=== PATIENT | male | born 1995 | race African-American/Black ===

== ENCOUNTER 2023-09-16 14:40 | Outpatient (REF) | payer MEDICAID, SELFPAY ==
[2023-09-16 15:55] LABS: MANUAL DIFF FLAG NO
[2023-09-16 16:52] LABS: Basophils Percent Auto 0.5 % (0-2); Eosinophils Absolute Auto 0.1 X10*3/uL (0.0-0.4); Eosinophils Percent Auto 1.2 % (0-4); Hematocrit 44.3 % (42.0-52.0); Hemoglobin 14.3 g/dl (14.0-18.0); Imm Gran Abs Auto 0.01 X10*3/uL (0.00-0.03); Imm Gran Pct Auto 0.2 % (0.0-0.4); Lymphocytes Percent Auto 31.3 % (20-40); Mean Corpuscular HGB Conc 32.3 g/dl (31.0-36.0); Mean Corpuscular Hemoglobin 26.2 pg (27.0-33.0); Mean Corpuscular Volume 81.1 fL (80.0-98.0); Monocytes Absolute Auto 0.7 X10*3/uL (0.1-1.2); Monocytes Percent Auto 10.6 % (2-11); Neutrophils Absolute Auto 3.6 x10*3/uL (2.0-8.3); Neutrophils Percent Auto 56.2 % (45-73); Platelet Count 161 X10*3/uL (160-400); Red Blood Count 5.46 X10*6/uL (4.60-5.80); Red Cell Distribution Width 14.6 % (11.0-16.0); White Blood Count 6.5 X10*3/uL (4.8-10.8)
[2023-09-16 17:23] LABS: Alanine Aminotransferase 24 U/L (0-40); Albumin Level 4.3 g/dL (3.5-5.0); Alkaline Phosphatase 60 U/L (39-117); Anion Gap 14 (12-20); Aspartate Amino Transferase 26 U/L (5-37); Bilirubin Total 1.3 mg/dL (0.0-1.0); Blood Urea Nitrogen 13 mg/dL (9-16); Calcium 9.7 mg/dL (8.4-10.2); Carbon Dioxide 24 mmol/L (22-29); Chloride 106 mmol/L (96-108); Estimated Glomerular Filt Rate > 60; Glucose Random 85 mg/dL (60-115); Potassium 3.8 mmol/L (3.3-5.1); Sodium 140 mmol/L (135-145); Total Protein 7.4 g/dL (6.5-8.0)
== END 2023-09-16 14:41 | disposition home or self-care (01) ==
LOC: HO.LAB 14:40
PROVIDERS: PCP Physician Assistant Medical; Visit Provider Nurse Practitioner
DX: Z01.818 Encounter for other preprocedural examination (principal); K92.1 Melena
CPT/HCPCS: 36415; 80053; 85025; 99212

== ENCOUNTER 2023-09-16 14:40 | Outpatient (AMB) | payer MEDICAID, SELFPAY ==
--- NOTE | 2023-09-16 14:52 | A.OFFVIS_ITS ---
Vital Signs 09/16/23 14:59 Height 5 ft 8 in Weight 200 lb 9.93 oz BMI 30.5 BP 108/68 Blood Pressure Location Lt brachial Position Sitting Pulse 68 Pulse Source Pulse Oximeter Pulse Oximetry (%) 98 Oxygen Delivery Method Room Air Intake Visit Reasons: Melena Intake Note: Paulie presents in office today for an initial assessment. CC; Pt reports that he had began with sx within the last 4-6 months. Pt reports that it had started with what he thought was food poisoning as he was experiencing nausea and vomiting. Pt reports that this had resolved on its own up until June of 2023. Pt then reports experiencing melena and frequent headaches. Pt states that he is seeing small amounts of bright red blood in the stool itself. [employer] Required: No Accompanied by: Mother Allergies No Known Drug Allergies Allergy (Unknown, Verified 09/16/23 14:53) none HPI HPI Melena: Details: 28-year-old male here for initial evaluation of rectal bleeding. He is referred by [facility] in [place]. PMX Obesity SURGICAL HISTORY Patient and mother denies [employer]: None in our system On 09/10/23 @ 08:51 Phyllis Morel Wrote To Morel I just called the patient and he is not taking any medications and has never had any surgery done. On 09/09/23 @ 17:28 AdrielWhit Wrote To Morel (2) This patient is on my schedule for next week for rectal bleeding. The referral sent does not have any medical surgery history or medications. We need to get information in the chart or reschedule the patient to a later date when we can have the information. TODAY'S VISIT ONset for a few days in June with blood clinging to the stool. He has not speci fic bowel problems and no abd pain associated with this episode. No rectal pain. No upper stomach problems. He is naive to anesthesia and sedation. He denies any cardiac or respiratory problems. NO ID problems. His mother has had a resection for TICS no known crc or polyps. [facility] Family History Maternal Grandmother Bone cancer Social History Alcohol intake: never Patient Tobacco Use Status: Never used Tobacco Use of substances other than those prescribed or required for medical reasons: No Review of Systems Const Denies fatigue, Denies fever(s), Denies night sweats, Denies poor appetite and Denies weight loss ENT Reports Normal hearing present, Denies dental pain, Denies dysphagia, Denies hearing loss, Denies mouth pain, Denies odynophagia, Denies throat swelling, Denies tongue swelling and Reports other (Dentition adequate) Card Reports no additional complaints Resp Reports no additional complaints GI Details: Denies abdominal pain, Denies melena, Denies bloating, Reports hematochezia, Denies constipation, Denies GI cramping, Denies dysphagia, Denies excessive flatus, Denies early satiety, Denies heartburn, Denies diarrhea, Denies nausea, Denies odynophagia, Denies vomiting and Denies hematemesis Skin/Breast Denies pruritus, Denies lesions, Denies rash and Denies jaundice Neuro Reports Normal hearing present and Denies Abnormal speech present Endo Denies fatigue Aller/Immun Denies throat swelling and Denies tongue swelling Physical Exam Vital Signs: Last Vital Signs Pulse 68 09/16/23 14:59 BP 108/68 09/16/23 14:59 Pulse Ox 98 09/16/23 14:59 Oxygen Delivery Method Room Air 09/16/23 14:59 BMI result Body Mass Index 30.5 Const General: cooperative, no acute distress, well developed and well groomed Nutritional Appearance: well nourished and obese Orientation/consciousness: oriented to person, oriented to place and oriented to time Limitations: No language barrier HEENT Head: Yes normocephalic and Yes atraumatic Eyes General: appearance normal, both eyes and all related structures Pupils: Equal, round and reactive pupils present Neck Neck: Yes normal visual inspection and Yes no lymphadenopathy Thyroid: Thyroid normal Resp Effort & Inspection: normal respiratory effort and able to speak in complete sentences Auscultation: clear to auscultation bilaterally Cardio Rate: regular rate Rhythm: regular rhythm Heart sounds: Normal, physiologic split S2 sound present Peripheral pulses: radial pulses present and posterior tibial pulses present GI Inspection: No distended, No Abdominal panniculus present and Yes obesity Palpation (GI): Soft to palpation, nontender, no guarding, not rigid and No hepatosplenomegaly present Percussion: Yes normal to percussion Auscultation: normal bowel sounds Rectal Exam - Male: Yes deferred Skin General skin exam: no rashes or lesions noted, turgor normal, skin not dry, no jaundice, No spider nevi and no striae Rashes: no rashes Nails: normal Neuro General: oriented to person, oriented to place and oriented to time Cranial nerves: Yes Equal, round and reactive pupils present and Yes Normal hearing present Speech: No Abnormal speech present Extrem General: Yes normal to inspection, No clubbing, No cyanosis and No edema Psych Appearance: grossly normal and well kempt Mental Status: mental status grossly normal Speech and movement: Normal speech and movement present Affect: normal affect Attitude: cooperative Thought process: Normal thought process present and not confabulating Thought content: Normal thought content present Insight: Limited insight present (Psych) Judgement: Limited judgement present (Psych) Assessment & Plan Assessment & Plan (1) Pre-op examination: Code(s): Z01.818 - Encounter for other preprocedural examination Category: Medical Plan ONset for a few days in June with blood clinging to the stool. He has not specific bowel problems and no abd pain associated with this episode. No rectal pain. No upper stomach problems. He is naive to anesthesia and sedation. He denies any cardiac or respiratory problems. NO ID problems. His mother has had a resection for TICS no known crc or polyps. Orders: Orders Colonoscopy - GI Use Only Today Z01.818 - Encounter for other preprocedural examination Complete Blood Count Auto Diff Today Z01.818 - Encounter for other preprocedural examination Comprehensive Met. Panel Today Z01.818 - Encounter for other preprocedural examination Medications: New peg 3350-electrolytes 236-22.74-6.74 -5.86 gram (Golytely) until fecal effluent is clear; do not exceed a total volume of 2,000 mL 240 mL PO Q10M 4,000 mL 0RF 1 day Z12.11 - Encounter for screening for malignant neoplasm of colon bisacodyl (Dulcolax (bisacodyl)) 10 mg (2 x 5 mg) PO BEDTIME 4 tabs 0RF 2 days Coding Level of Care Code New Pt Level 3 (04677) Diagnoses Pre-op examination Z01.818
[2023-09-16 14:59] VITALS: BP 108/68; PULSE 68; O2SAT 98; BMI 30.5
== END 2023-09-16 15:29 | disposition home or self-care (01) ==
PROVIDERS: PCP Physician Assistant Medical; Visit Provider Nurse Practitioner
DX: Z01.818 Encounter for other preprocedural examination (principal)
CPT/HCPCS: 99203

== ENCOUNTER 2024-04-20 08:12 | Day surgery (SDC) | payer MEDICAID, SELFPAY ==
[2024-03-01 14:13] VITALS: BMI 30.4
--- NOTE | 2024-04-19 13:26 | P.CONAN_ITS ---
Documented by User: Humera Church NP 04/19/24 13:26 HPI - Anesthesia Eval Consult details Narrative: 28yo M for Colonoscopy [facility] Active Problems Active Problems: All Active Problems Pre-op examination (Acute) Past Medical History Medical History (Updated 04/20/24 @ 09:35 by Oxana Cortes RN) Rectal bleeding Constipation Obesity Family History Family History Maternal Grandmother Bone cancer Surgical History Surgical History (Updated 04/20/24 @ 09:35 by Oxana Cortes RN) No pertinent past surgical history Social History Social History Are you a primary patient care associate to a significant other at home: No Do you presently have visiting nurse or other home services: No Alcohol intake: never Patient Tobacco Use Status: Never used Tobacco Have you been hit, kicked, punched, or otherwise hurt by someone within the past year? If so, by whom?: No Are you DNR?: No Advance Directives: No Advance Directives Information Provided: Yes Recently lost weight without trying: No Nutrition Risks: No Nutritional Risk Meds Allergies Allergy/AdvReac Type Severity Reaction Status Date / Time No Known Drug Allergies Allergy Unknown none Verified 04/20/24 09:34 Home Medications ?Medication ?Instructions ?Recorded ?Confirmed ?Last Taken ?Type No Known Home Meds 04/20/24 04/20/24 Unknown History Exam Height,Weight and Vital Signs: Height 5 ft 8 in Weight 90.718 kg Assessment and Plan Assessment Anesthesia Assessment: Chart Reviewed Documented by User: Emiliano Devries MD 04/20/24 10:27 [facility] Past Medical History Medical History (Updated 04/20/24 @ 09:35 by Oxana Cortes RN) Rectal bleeding Constipation Obesity Family History Family History Maternal Grandmother Bone cancer Family history of problems with anesthesia: No Surgical History Surgical History (Updated 04/20/24 @ 09:35 by Oxana Cortes RN) No pertinent past surgical history History of Problems with Anesthesia: No Social History Social History (Reviewed 09/16/23 @ 14:58 by Davide Gomes [facility]) Are you a primary patient care associate to a significant other at home: No Do you presently have visiting nurse or other home services: No Alcohol intake: never Patient Tobacco Use Status: Never used Tobacco Have you been hit, kicked, punched, or otherwise hurt by someone within the past year? If so, by whom?: No Are you DNR?: No Advance Directives: No Advance Directives Information Provided: Yes Recently lost weight without trying: No Nutrition Risks: No Nutritional Risk Meds Allergies Allergy/AdvReac Type Severity Reaction Status Date / Time No Known Drug Allergies Allergy Unknown none Verified 04/20/24 09:34 Home Medications ?Medication ?Instructions ?Recorded ?Confirmed ?Last Taken ?Type No Known Home Meds 04/20/24 04/20/24 Unknown History Exam Airway Mallampati Class: I TM Dist: >3cm Neck ROM: Full Loose/Missing/Broken Teeth: No Heart: ok Lungs: ok Assessment and Plan Assessment Anesthesia Assessment: Anesthesia Plan Discussed Final Anesthetic Review Family History of Problems with Anesthesia: No History of Problems with Anesthesia: No NPO: Yes ASA Class: II Final Preanesthetic Review: No Changes in Pt Med Stat, Meds/Allgs Chart Reviewed, Consent Obtained/Reviewed and Anes Risks/Benef Reviewed Patient Risk: Intermediate Procedure Risk: Low Anesthetic Plan Anesthetic Plan: MAC: and Agree w/ Assess. and Plan Disposition: Standard PACU
--- OUTSIDE RECORDS SUMMARY | 2024-04-19 14:48 | XMS_ITS | Data Portability ---
Author Organization [facility], Main Office Address [address] [place] [address] Care Team Providers Care Animal Assistant Name Role Phone JORGE LUIS LANE Primary Care Provider [phone] [facility] Branch Manager Assessment No assessment recorded. Plan of Treatment Reminders Order Date Submit Date Provider Last Modified By Organization Details Last Modified Time Details Appointments None recorde d. Lab CBC 2023 024 LIZETH [facility] (Centralized Electronic Ordering - All Locations), Patient Can Go To The Location Of Their Choice, [id number] 4 22:05:47 TSH, serum or plasma 2020 021 LIZETH [facility], [address], [place] [address], [place], [address], 20:21:03 CMP, serum or plasma 2020 021 LIZETH [facility], [address], [place] [address], [place], [address], 1 20:16:04 lipid panel, serum 2020 021 LIZETH [facility], [address], [place] [address], [place], [address], 1 20:16:05 Referral nutriti onist/d delonte n referra l 2023 024 Not available 15:14:44 gastroe nterolo gist referra l 2023 024 [facility], [address] [place] [address] Dr, [address]rd Fl, [place], [address], 4 13:06:43 nutriti onist/d ietitia n referra l 2022 023 [email or web address] Not available 3 14:20:43 nutriti onist/d ietitia n referra l 2021 022 [email or web address] Not available 2 13:08:08 nutriti onist/d ietitia n referra l 2020 021 abolcun Not available 12:43:13 Procedures None recorde d. Surgeries None recorde d. Imaging US, thyroid - rule out right lobe enlarge ment 2020 021 [email or web address] Not available 13:24:06 Medication Orders None recorde d. Patient TargetsNo targets recorded. Patient Instructions Encounter Date Encounter Id Patient Instructions Last Modified By Enrique on Details Last Modified Time 05/20/2020 [id number] thyroid nodules: care instructions chris Not available 05/20/2020 15:03:21 starting a weigh t loss plan: care instructions awmilyowski Not available 05/20/2020 15:03:21 09/25/2021 [id number] psychiatric collaborative care management* - for assessment of pt with blunted affect, rule out mood disorder vs ASD [email or web address] Not available 10/03/2021 11:24:23 When You Want to Lose Weight: Care Instructions awychowski Not available 09/25/2021 11:49:45 Nutrition Referr al and Weight Management Follow-up Information awychowski Not available 09/25/2021 11:49:45 10/22/2022 [id number] neuropsychologic al testing* - for neuropsych testing. jaxon Not available 12/11/2022 06:45:59 learning about stress chris Not dee dee ilable 10/22/2022 13:33:22 Mental Health Information awychowski Not available 10/22/2022 13:33:22 When You Want to Lose Weight: Care Instructions chris Not available 10/22/2022 13:33:22 Nutrition Referr al and Weight Management Follow-up Information chris Not available 10/22/2022 13:33:22 07/20/2023 [id number] headache: care instructions pmadden Not available 07/20/2023 11:56:38 tension headache : care instructions pmadden Not available 07/20/2023 11:56:39 rectal bleeding: care instructions pmadden Not available 07/20/2023 15:45:41 Follow up if no improvement or if symptoms worsen. pmadden Not available 07/20/2023 15:46:12 12/28/2023 [id number] starting a weigh t loss plan: care instructions chris Not available 12/28/2023 14:42:47 Reason for Referral Etl Manager/dietitian Refer ral for Body mass index 30+ - obesity Referring Physician: Jorge Luis Lane [facility], Encounter Date: 05/20/2020 Etl Manager/dietitian Refer ral for Body mass index 25-29 - overweight Referring Physician: Jorge Luis Lane [facility], Encounter Date: 09/25/2021 Etl Manager/dietitian Refer ral for Body mass index 25-29 - overweight Referring Physician: Jorge Luis Lane [facility], Encounter Date: 10/22/2022 Branch Manager Referral for Hematochezia Referring Physician: Hai Moreno, Internal Medicine, Encounter Date: 07/20/2023 Etl Manager/dietitian Refer ral for Body mass index 30+ - obesity Referring Physician: Jorge Luis Lane [facility], Encounter Date: 12/28/2023 Results Created Date Observation Date Name Description Value Unit Range Abnormal Flag Note LastModifiedBy Organization Detail LastModifiedTime 05/21/19 21 05/20/2020 CMP, serum or plasm a glucose 90 mg/dL (70-99 ) Not Available [facility] (Centralized Electronic Ordering - All Locations) Patient Can Go To The Location Of Their Choice, [id number] 05/20/2020 20:16:04 05/21/19 21 05/20/2020 CMP, serum or plasm a BUN 13 mg/dL (6-20) Not Available [facility] (Centralized Electronic Ordering - All Locations) Patient Can Go To The Location Of Their Choice, 05/20/2020 20:16:04 05/21/1905/20/2020 CMP, serum or plasm a creatinine 1.2 mg/dL (0.7-1 .2) Not Available [facility] (Centralized Electronic Ordering - All Locations) Patient Can Go To The Location Of Their Choice, 05/20/2020 20:16:04 05/21/1905/20/2020 CMP, serum or plasm a sodium 138 mmol/ L (133-1 45) Not Available [facility] (Centralized Electronic Ordering - All Locations) Patient Can Go To The Location Of Their Choice, 05/20/2020 20:16:04 05/21/1905/20/2020 CMP, serum or plasm a potassium 4.3 mmol/ L (3.6-5 .2) Not Available [facility] (Centralized Electronic Ordering - All Locations) Patient Can Go To The Location Of Their Choice, 05/20/2020 20:16:04 05/21/1905/20/2020 CMP, serum or plasm a chloride 101 mmol/ L (98-10 7) Not Available [facility] (Centralized Electronic Ordering - All Locations) Patient Can Go To The Location Of Their Choice, 05/20/2020 20:16:04 05/21/1905/20/2020 CMP, serum or plasm a bicarbonate 26 mmol/ L (22-29 ) Not Available [facility] (Centralized Electronic Ordering - All Locations) Patient Can Go To The Location Of Their Choice, 05/20/2020 20:16:04 05/21/1905/20/2020 CMP, serum or plasm a anion gap 11 (4-17) Not Available [facility] (Centralized Electronic Ordering - All Locations) Patient Can Go To The Location Of Their Choice, 05/20/2020 20:16:04 05/21/1905/20/2020 CMP, serum or plasm a albumin 4.5 gm/dL (3.4-4 .8) Not Available [facility] (Centralized Electronic Ordering - All Locations) Patient Can Go To The Location Of Their Choice, 05/20/2020 20:16:04 05/21/1905/20/2020 CMP, serum or plasm a calcium 9.6 mg/dL (8.6-1 0.5) Not Available [facility] (Centralized Electronic Ordering - All Locations) Patient Can Go To The Location Of Their Choice, 05/20/2020 20:16:04 05/21/1905/20/2020 CMP, serum or plasm a bilirubin,to sami 0.8 mg/dL (0-1.2 ) Not Available [facility] (Centralized Electronic Ordering - All Locations) Patient Can Go To The Location Of Their Choice, 05/20/2020 20:16:04 05/21/1905/20/2020 CMP, serum or plasm a total protein 7.1 gm/dL (6.2-8 .2) Not Available [facility] (Centralized Electronic Ordering - All Locations) Patient Can Go To The Location Of Their Choice, 05/20/2020 20:16:05/21/1905/20/2020 CMP, serum or plasm a Ag ratio 1.7 Not Available [facility] (Centralized Electronic Ordering - All Locations) Patient Can Go To The Location Of Their Choice, 05/20/2020 20:16:05/21/1905/20/2020 CMP, serum or plasm a AST 22 U/L (0-40) Not Available [facility] (Centralized Electronic Ordering - All Locations) Patient Can Go To The Location Of Their Choice, 05/20/2020 20:16:04 05/21/1905/20/2020 CMP, serum or plasm a alk phos 75 U/L (40-12 9) Not Available [facility] (Centralized Electronic Ordering - All Locations) Patient Can Go To The Location Of Their Choice, 05/20/2020 20:16:04 05/21/1905/20/2020 CMP, serum or plasm a ALT 16 U/L (0-41) Not Available [facility] (Centralized Electronic Ordering - All Locations) Patient Can Go To The Location Of Their Choice, 05/20/2020 20:16:04 05/21/1905/20/2020 CMP, serum or plasm a est GFR non 87 mL/mi n/1.7 3_M2 Creat inine based estim ated glome rular filtr ation rate (eGFR ) is calcu lated using the Chron ic Kidne y Disea se Epide miolo gy Colla borat ion (CKD- EPI). The CKD-E PI creat inine equat ion has not been valid ated in child kevon (<18 years ), pregn ant women or in some racia l or ethni c subgr oups other than Cauca sians and Afric an Ameri cans. Not Available [facility] (Centralized Electronic Ordering - All Locations) Patient Can Go To The Location Of Their Choice, 05/20/2020 20:16:04 05/21/1905/20/2020 CMP, serum or plasm a est GFR 101 mL/mi n/1.7 3_M2 Creat inine based estim ated glome rular filtr ation rate (eGFR ) is calcu lated using the Chron ic Kidne y Disea se Epide miolo gy Colla borat ion (CKD- EPI). The CKD-E PI creat inine equat ion has not been valid ated in child kevon (<18 years ), pregn ant women or in some racia l or ethni c subgr oups other than Cauca sians and Afric an Ameri cans. Not Available [facility] (Centralized Electronic Ordering - All Locations) Patient Can Go To The Location Of Their Choice, 05/20/2020 20:16:04 05/21/1905/20/2020 lipid panel , serum cholesterol, total 155 mg/dL (<200) Not Available [facility] ([facility] Ordering - All Locations) Patient Can Go To The Location Of Their Choice, 05/20/2020 20:16:05 05/21/1905/20/2020 lipid panel , serum HDL chol 47 mg/dL (>39) Not Available [facility] (Centralized Electronic Ordering - All Locations) Patient Can Go To The Location Of Their Choice, 05/20/2020 20:16:05 05/21/19 21 05/20/2020 lipid panel , serum non HDL cholesterol (calc) 108 mg/dL (<160) Not Available [facility] ([facility] Ordering - All Locations) Patient Can Go To The Location Of Their Choice, [id number] 05/20/2020 20:16:05 05/21/19 21 05/20/2020 TSH, serum or plasm a TSH 1.22 uIU/m L (0.4-4 .00) Not Available [facility] (Centralized Electronic Ordering - All Locations) Patient Can Go To The Location Of Their Choice, 05/20/2020 20:21:03 07/20/19 24 07/20/2023 CBC, PLATE LET, NO DIFFE RENTI AL WBC 5.4 x10e3 /uL 3.4-10 .8 Not Available [facility] ([facility]) [address] [place], [address], 07/20/2023 22:05:47 07/20/19 24 07/20/2023 CBC, PLATE LET, NO DIFFE RENTI AL RBC 5.66 x10e6 /uL 4.14-5 .80 Not Available [facility] ([facility]) [address] [place], [address], 07/20/2023 22:05:47 07/20/19 24 07/20/2023 CBC, PLATE LET, NO DIFFE RENTI AL hemoglobin 14.1 g/dL 13.0-1 7.7 Not Available [facility] ([facility]) [address] [place], [address], 07/20/2023 22:05:47 07/20/19 24 07/20/2023 CBC, PLATE LET, NO DIFFE RENTI AL hematocrit 46.5 % 37.5-5 1.0 Not Available [facility] ([facility]) [address] [place], [address], 07/20/2023 22:05:47 07/20/19 24 07/20/2023 CBC, PLATE LET, NO DIFFE RENTI AL MCV 82 fL 79-97 Not Available [facility] ([facility]) [address] [place], [address], 07/20/2023 22:05:47 07/20/19 24 07/20/2023 CBC, PLATE LET, NO DIFFE RENTI AL MCH 24.9 pg 26.6-3 3.0 below low normal Not Available [facility] ([facility]) [address] [place], [address], 07/20/2023 22:05:47 07/20/19 24 07/20/2023 CBC, PLATE LET, NO DIFFE RENTI AL MCHC 30.3 g/dL 31.5-3 5.7 below low normal Not Available [facility] ([facility]) [address] [place], [address], 07/20/2023 22:05:47 07/20/19 24 07/20/2023 CBC, PLATE LET, NO DIFFE RENTI AL RDW 13.1 % 11.6-1 5.4 Not Available [facility] ([facility]) [address] [place], [address], 07/20/2023 22:05:47 07/20/19 24 07/20/2023 CBC, PLATE LET, NO DIFFE RENTI AL platelets 154 x10e3 /uL 150-45 0 Not Available [facility] ([facility]) [address] [place], [address], 07/20/2023 22:05:47 07/20/19 24 07/20/2023 CBC, PLATE LET, NO DIFFE RENTI AL NRBC [employer] Not Available [facility] ([facility]) [address] [place], [address], 07/20/2023 22:05:47 Result Notes None recorded. Problems Name Problem SNOMED Code Status Onset Date Resolution Date Notes Provider Name and Address Organization Details Recorded Time Contact dermatit is [id number] Completed 201309/05/2013 RECORDED 04/12/19 14 4:49PM BY JORGE LUIS Fairchild MD, ANNOTATI ON/ADDEN DUM Not Available [facility] 4 13:32:35 Disorder of hair AND/OR hair follicle Completed 201311/22/2014 IMPRESSI ON: WILL SEE IF TOPICAL ABX HELPS. SYMPTOMS CURRENTL Y MILD.; RECORDED 04/12/19 14 4:49PM BY JORGE LUIS Fairchild MD, OFFICE VISIT Jorge Luis Lane MD [address], [place], [address] , [facility] 5 10:52:20 Active or passive immuniza tion Completed 201309/05/2013 RECORDED 04/12/19 14 3:38PM BY JORGE LUIS Fairchild MD, OFFICE VISIT Not Available [facility] 4 13:32:35 Obesity 212978212 Completed 201308/04/[address] MD [address], [place], [address] , [facility] 8 12:07:32 [place] ht [id number] Completed 201309/05/2013 RECORDED 04/12/19 14 3:43PM BY SOFIA MCCARTY MA, MARTINATI ON/ADDEN DUM Not Available [facility] 4 13:32:35 Well child [id number] Completed 201311/22/2014 IMPRESSI ON: WILL UPDATE IMMUNIZA TION STATUS. REGULAR DENTAL CARE AND SEATBELT USE ADVISED. DISTRACT ED DRIVING DISCUSSE D. MONTHLY AMALIA ADVISED. ; RECORDED 04/12/19 14 4:48PM BY JORGE LUIS Fairchild MD, OFFICE VISIT Jorge Luis Lane MD [address], [place], [address] , [facility] 5 10:52:20 Well child [id number] Completed 201309/05/2013 IMPRESSI ON: GROWING AND DEVELOPI NG WELL. AGE APPROPRI ATE ANTICIPA TORY GUIDANCE PROVIDED . REGULAR DENTAL CARE AND APPROPRI ATE CAR SAFETY ADVISED. HPV AND INFLUENZ A VACCINAT IONS OFFERED BUT DECLINED WITH MILENA PANDYA NCES UNDERSTO OD.; RECORDED 04/12/19 14 1:22PM BY ROMA JACOME MA, ANNOTATI ON/ADDEN DUM Not Available [facility] 4 13:32:35 Contact dermatit is [id number] Completed 201310/02/2013 RECORDED 04/12/19 14 4:49PM BY JORGE LUIS Fairchild MD, ANNOTATI ON/ADDEN DUM Not Available [facility] 4 05:14:39 Active or passive immuniza tion Completed 201310/02/2013 RECORDED 04/12/19 14 3:38PM BY JORGE LUIS Fairchild MD, OFFICE VISIT Not Available [facility] 4 05:14:39 [facility] [id number] Completed 201310/02/2013 RECORDED 04/12/19 14 3:43PM BY SOFIA MCCARTY MA, ANNOTATI ON/ADDEN DUM Not Available [facility] 4 05:14:39 Body mass index 25-29 - [facility] [id number] Completed 08/04/[address] MD [address] [address], [place], [address] , [facility] 4 17:12:01 Body mass index 25-29 - [place] 730240224 Completed 201705/20/[address] MD [address] [address], [place], [address] , [facility] 4 17:12:01 Suspecte d COVID-19 721328275 Completed 02/04/2021 Removal Reason: Problem added by user [email or web address] from the COVID-19 watch flag Sherlyn marcelo, [facility] 1 13:45:30 Body mass index 25-29 - over[place] 596838236 Completed 202112/28/[address] MD [address] [place], [address] , [facility] 4 17:12:01 Blunted affect 7832189 Active [address] MD [address], [place], [address] , [facility] 3 13:31:01 Body mass index 30+ - obesity 938843922 Active [address] MD [address], [place], [address] , [facility] 4 17:11:11 Problem Notes None recorded. Medical Equipment None Reported. Allergies Allergen ID Allergen Name Allergen Category Reaction Reaction Severity Criticality Documentation Date Start Date Code Code System Note Provider Name and Address Organization Details Recorded Time 4080 No known allergy (situatio n) Not available Not available Not available Not available 09/05/20132011 53188 6003 SNOMED Roma Jacome MA null, [facility] 2 11:01:54 Medications Name Sig Start Date Stop Date Status Note LastModified by Organization Details LastModified Time bisacodyl 5 mg tablet,de layed release TAKE 2 TABLETS EVERY DAY EVERY DAY AT BEDTIME FOR 2 DAYS 12/27 completed Not Available Not Available Not Available Multivita mins DAILY active RECORDED 04/12/19 14 3:00PM BY ROMA JACOME MA, OFFICE VISIT; Not Available Not Available Not Available peg 3350-elec trolytes 236 gram-22.7 4 gram-6.74 gram-5.86 gram solution MIX DIRECTED AND DRINK 240ML EVERY 10 MINUTES DIRECTED FOR 1 DAY UNTIL FECAL EFFLUENT IS CLEAR. DO NOT EXCEED A TOTAL VOLUME OF 2000 ML 12/27 completed Not Available Not Available Not Available Vitals Date Recorded Body height Body mass index (BMI) Body weight Oxygen saturation Oxygen saturation in Arterial blood by Pulse oximetry Heart rate Body temperature Systolic blood pressure Diastolic blood pressure Provider Name and Address Organization Details Last Updated DateTime 1 171.45 cm 32.1 kg/m2 27096.2 1 g 98 % 98 % 72 /min 98.06 [degF] 122 mm[Hg] 72 mm[Hg] Roma Jacome MA [facility] 1 14:31:38 Date Recorded Body height Body mass index (BMI) Body weight Heart rate Oxygen saturation Oxygen saturation in Arterial blood by Pulse oximetry Body temperature Systolic blood pressure Diastolic blood pressure Provider Name and Address Organization Details Last Updated DateTime 2 171.45 cm 28.9 kg/m2 54769.7 7 g 75 /min 98 % 98 % 98.24 [degF] 110 mm[Hg] 63 mm[Hg] [facility] 2 11:13:24 Date Recorded Body height Body mass index (BMI) Body weight Heart rate Oxygen saturation Oxygen saturation in Arterial blood by Pulse oximetry Body temperature Systolic blood pressure Diastolic blood pressure Provider Name and Address Organization Details Last Updated DateTime 3 171.45 cm 28.3 kg/m2 13191.8 g 61 /min 98 % 98 % 98.5 [degF] 105 mm[Hg] 69 mm[Hg] Angela Donohue [facility] [place] 3 13:07:24 Date Recorded Body height Body mass index (BMI) Body weight Heart rate Oxygen saturation Oxygen saturation in Arterial blood by Pulse oximetry Body temperature Systolic blood pressure Diastolic blood pressure Provider Name and Address Organization Details Last Updated DateTime 4 171.45 cm 30.7 kg/m2 28764.8 8 g 81 /min 97 % 97 % 98.7 [degF] 100 mm[Hg] 64 mm[Hg] Donovan sullivan MA [facility] 4 11:05:18 Date Recorded Body height Body mass index (BMI) Body weight Heart rate Oxygen saturation Oxygen saturation in Arterial blood by Pulse oximetry Body temperature Systolic blood pressure Diastolic blood pressure Provider Name and Address Organization Details Last Updated DateTime 4 171.45 cm 31.9 kg/m2 94718.8 3 g 83 /min 99 % 99 % 98 [degF] 111 mm[Hg] 70 mm[Hg] [facility] 4 13:59:33 Social History Question Answer Notes LastModified by Organizat ion Details LastModified Time Tobacco Smoking Status Never Smoker Not Available [facility] 12/26/2019 03:36:38 Do You Have An Advance Directive? Yes HCP/ Mom-Natalie meléndez [id number] Information not available 12/26/2019 What Is Your Level Of Alcohol Consumption? None [id number] Information not available 12/26/2019 Is Blood Transfusion Acceptable In An Emergency? Yes [id number] Information not available 12/26/2019 What Is Your Level Of Caffeine Consumption? Occasional Tea Information not available 10/22/2022 How Much Tobacco Do You Chew? None [id number] Information not available 12/26/2019 Are You Currently Employed? No [id number] Information not available 12/26/2019 What Type Of Diet Are You Following? REGULAR [id number] Information not available 12/26/2019 Which Illicit Or Recreational Drugs Have You Used? None [id number] Information not available 12/26/2019 Do You Or Have You Ever Used E-cigarettes Or Vape? Never Used Electronic Cigarettes [id number] Information not available 12/26/2019 What Is Your Occupation? Unemployed Information not available 05/20/2020 Live Alone Or With Others? With Others Mom, Sister (Rosario), And Neice Information not available 11/22/2014 Do You Take Precautions To Prevent Distracted Driving? Yes Information not available 08/04/2017 How Often Do You Need To Have Someone Help You When You Read Instructions, Pamphlets, Or Other Written Material From Your Doctor Or Pharmacy? Sometimes [place] Information not available 07/23/2016 Have You Served In The ? No [employer] Information not available 07/23/2016 Have You Or Anyone In Your Household Had Any Of The Following Symptoms In The Last 14 Days: Sore Throat, Cough, Chills, Body Aches For Unknown Reasons, Shortness Of Breath For Unknown Reasons, Loss Of Smell, Loss Of Taste, Fever At Or Greater Than 100 Degrees Fahrenheit? No Information not available 05/20/2020 Are You Or Anyone In Your Household A Health Care Provider Or Emergency Responder? No Information not available 05/20/2020 To The Best Of Your Knowledge Have You Been In Close Proximity To Any Individual Who Tested Positive For COVID-19? No Information not available 05/20/2020 *AWV ONLY* Are You Presently Prescribed Opioid Medication By PCP Or Specialist? If YES -Provider Assess The Benefit For Other, Non-opioid Pain Therapies Instead, Even If The Patient Does Not Have OUD But Is Possibly At Risk. No Information not available 05/20/2020 Have You Recently Traveled To A COVID-19 High Risk Area Or Gathering In The Last 10 Days? No Information not available 05/20/2020 What Was The Date Of Your Most Recent Tobacco Screening? 12/28/2023 Information not available 12/28/2023 How Many Children Do You Have? 0 [id number] Information not available 12/26/2019 Seat Belts Used Routinely Yes Information not available 11/22/2014 Are You Sexually Active? No [id number] Information not available 12/26/2019 Smoke Alarm In Home Yes Information not available 11/22/2014 At What Age Did You Start Smoking Tobacco? 1 [id number] Information not available 12/26/2019 Are You Passively Exposed To Smoke? No Information not available 11/22/2014 Do You Or Have You Ever Used Smokeless Tobacco? Never Used Smokeless Tobacco [id number] Information not available 12/26/2019 How Much Tobacco Do You Smoke? No [id number] Information not available 12/26/2019 Do You Use Any Illicit Or Recreational Drugs? No Information not available 09/25/2021 Do You Use Sunscreen Routinely? No [id number] Information not available 12/26/2019 How Many Years Have You Smoked Tobacco? 0 [id number] Information not available 12/26/2019 Do You Or Have You Ever Used Any Other Forms Of Tobacco Or Nicotine? No Information not available 09/25/2021 Sex: Unknown Functional Status Question Answer Note LastModified by Organizat ion Details LastModified Time Are you able to walk? YESWOREST Information not available 09/25/2021 Are you able to care for yourself? Yes [id number] Information not available 12/26/2019 What is your exercise level? Occasional Gym Information not available 10/22/2022 Mental Status None recorded. Family History Relationship Description Onset Age of this Age Resolved Age Notes LastModified by Organization Details LastModified Time Mother Hypertensive disorder chris Not available 11/22 10:54:44 Father Well adult chris Not avail able 11/22/2014 10:54:44 Sister Well adult cheriowski Not avail able 08/04/2017 12:09:09 Medical History No medical history recorded. Immunizations Vaccine Type Date Status Note Provider Nam e and Address Organization Details Recorded Time COVID-19, mRNA, LNP-S, PF, 30 mcg/0.3 mL dose [facility]:03:22 COVID-19, mRNA, LNP-S, PF, 30 mcg/0.3 mL dose 1 [facility] 13:03:22 COVID-19, mRNA, LNP-S, PF, 30 mcg/0.3 mL dose, jeremiah-sucrose 2 [facility] 13:03:22 Tdap 8 completed Not Available [facility] 03/11/2019 02:21:48 HPV9 8 completed Not Available [facility] 03/11/2019 02:22:00 HPV9 8 completed Not Available [facility] 03/11/2019 02:22:00 meningococcal MPSV4 8 completed Not Available [facility] 09/05/2013 13:45:34 [facility] 8 [facility] 13:45:34 DTaP 7 completed Not Available [facility] 09/05/2013 13:45:34 DTaP 7 completed Not Available [facility] 09/05/2013 13:45:34 [facility] 7 [facility] 13:45:34 DTaP 8 completed Not Available [facility]09/05/2013 13:45:34 IPV 7 completed Not Available [facility]09/05/2013 13:45:34 IPV 7 completed Not Available [facility]09/05/2013 13:45:34 IPV 7 completed Not Available [facility]09/05/2013 13:45:34 IPV 8 completed Not Available [facility]09/05/2013 13:45:34 Hib (HbOC) 9 completed Not Available [facility]09/05/2013 13:45:35 MMR 8 completed Not Available [facility] 13:45:35 MMR 0 completed Not Available [facility] 09/05/2013 13:45:35 varicella 0 completed Not Available [facility] 09/05/2013 13:45:35 varicella 9 completed Not Available [facility] 09/05/2013 13:45:35 Hep B, adult 9 completed Not Available [facility] 09/05/2013 13:45:35 Hep B, adult 0 completed Not Available [facility] 09/05/2013 13:45:35 Hep B, adult 1 completed Not Available [facility] 09/05/2013 13:45:35 Meningococcal MCV4O 4 completed Not Available [facility] 09/05/2013 13:45:35 HPV9 9 completed Not Available [facility] 03/11/2019 02:22:00 Influenza, split virus, trivalent, PF [address] MD [address] [facility] [address], [place], [address], [facility] [place]28/[place]23 17:10:48 Past Encounters Encounter ID Performer Location Encounter Start Date Encounter Closed Date Diagnosis/Indication Diagnosis SNOMED-CT Code Diagnosis ICD10 Code Diagnosis Note [id number] [facility]ce [address] [facility] [place] [address] 12/31/2011 00:00:00 [id number] [facility] [facility] [address] [address] [place] [address] 04/12/2013 00:00:00 [id number] Main Office [address] [facility] [address] [place] [address] 11/22/2014 09:56:49 11/22/2014 11:09:18 Adult health examination 635240355 Z00.00 Pt declines flu and Zostavax, understand ing potential consequenc es. Regular dental and ophtho care advised as well as seatbelt and sunscreen use. Body mass index 25-29 - overweight 893470693 E66.3 [id number] Dorothea cuello Main Office [address] [facility] [address] [place] [address] 07/23/2016 15:30:16 07/23/2016 16:17:12 Adult health examination 504861317 Z00.00 Body mass index 25-29 - overweight 972156991 E66.[id number] MD Main Office [address] [facility] [address] [place] [address] 08/04/2017 11:05:04 08/04/2017 12:32:54 Adult health examination 880851153 Z00.00 Immunizati on status updated, flu advised in the Fall. Screening utd. Regular dental and ophtho care advised as well as seat belt, helmet and sunscreen use. Monthly AMALIA also recommende d. Administra tion of viral vaccine 70574247 Z23 Body mass index 25-29 - overweight 140647384 E66.[id number] MD Main Office [address] [address] [place] [address] 12/03/2017 10:01:22 12/03/2017 10:11:36 Administration of viral vaccine 04573370 Z23 [id number] Sofia abarca [place] Main Office [address] [address] [place] [address] 04/15/2018 14:58:04 04/15/2018 15:27:58 Administration of viral vaccine 50772749 Z23 [id number] Jorge Luis Lane MD Main Office [address] [address] [place] [address] 11/14/2018 13:51:31 11/14/2018 14:31:46 Adult health examination 447681159 Z00.00 Immunizati on status utd flu advised when available. Will screen based on risk factors. Regular dental and ophtho care advised as well as seat belt, helmet and sunscreen use. Monthly AMALIA also recommende d. Advance directives updated/in place. Body mass index 25-29 - overweight 015057772 E66.3 Z68.27 [id number] Long Jj MD [facility] [address] [address] [place] [address] 03/12/2020 14:31:38 03/14/2020 12:58:40 Acute pharyngitis 499907811 J02.9 I advised him to get a COVID test and to quarantine until the results a back. He will also take ibuprofen prn. [id number] Jorge Luis Lane MD Main Office [address] [address] [place] [address] 05/20/2020 14:14:27 05/20/2020 15:06:33 Adult health examination 926003171 Z00.00 Immunizati on status utd flu advised when available. Will screen based on risk factors. Regular dental and ophtho care advised as well as seat belt, helmet and sunscreen use. Monthly AMALIA also recommende d. Advance directives updated/in place. Body mass index 30+ - obesity 995614338 E66.9 Z68.32 Thyroid nodule 398808150 E04.1 Assess for goiter and possible thyroid dysfunctio n. If Labs and u/s normal, no further imaging needed. Screening for cardiovascular system disease 951465443 Z13.[id number] MD Main Office [address] [address] [place] [address] 09/25/2021 10:58:16 09/25/2021 11:45:35 Adult health examination 499038415 Z00.00 Immunizati on status utd flu advised when available. Will screen based on risk factors. Regular dental and ophtho care advised as well as seat belt, helmet and sunscreen use. Monthly AMALIA also recommende d. Advance directives updated/in place. Body mass index 25-29 - overweight 582146441 E66.3 Z68.28 Blunted affect 3888606 R 45.89 Mom has been asking him to pursue eval to assess for possible mood or disorders. Pt will call to schedule if desired and let me know if having any issues. [id number] Jorge Luis Lane MD Main Office [address] [place] [address] 10/22/2022 12:47:24 10/22/2022 13:45:06 Adult health examination 136996827 Z00.00 COVID booster and flu advised when available. Screening utd based on risk factors. Regular dental and ophtho care advised as well as seat belt, helmet and sunscreen use. Monthly AMALIA also recommende d. Advance directives updated/in place. Body mass index 25-29 - overweight 891046796 E66.3 Z68.28 Blunted affect 7013319 R 45.89 Seen by psych since last visit. Differenti al remains broad, possible ASD vs learning d/o vs schizophre moriah. Pt advised to schedule neuropsych testing and to schedule eval with N for therapy and psychiatri st. [id number] Hai Moreno PA-C Main Office [address] [place] [address] 07/20/2023 10:53:15 07/20/2023 11:59:50 Hematochezia 596483033 K92.1 resolved - but will check cbc to r/o anemia, and get gi eval at mother's request Headache 42099430 R51.9 resolved - ? if had tension type yoon - rec prn hep, moist heat [id number] Jorge Luis Lane MD Main Office [address] [facility] [address] [facility] [place] [address] 12/28/2023 13:51:44 12/28/2023 14:51:05 Adult health examination 831072318 Z00.00 COVID booster advised via local pharmacy. Screening utd based on risk factors. Regular dental and ophtho care advised as well as seat belt, helmet and sunscreen use. Monthly AMALIA also recommende d. Advance directives updated/in place. Needs infl uenza immunization 490555476 Z23 19 YEARS AND OLDER ONLY Blunted affect 4316860 R 45.89 Seen by psych since last visit. Differenti al remains broad, possible ASD vs learning d/o vs schizophre moriah. Body mass index 30+ - obesity 940180133 E66.9 Z68.31 Health Concerns Section Related Observation LastModified by Organization Detai ls LastModified Time None Recorded Concern Status LastModified by Organization Details LastModified Time None Recorded Advance Directives Directive Y: HCP/ Mom-Frannie Payers Encounter Date Sequence Insurance Name Policy Number Policy Haddad Covered Member ID Haddad Member ID Guarantor Name 05/20/2020 1 [facility] [id number] Frannie Carreon [id number] Frannie Carreon 09/25/2021 1 [facility] [id number] 3 Frannie Carreon [id number] Frannie Carreon 10/22/2022 1 [place] Paulie N Lauri [id number] Frannie Carreon 07/20/2023 1 [place] Paulie N Lauri [id number] Frannie Carreon 12/28/2023 1 [place] Paulie N Lauri [id number] Frannie Carreon Notes Date Note Type Note Provider Name and Address Organization Details Recorded Time 05/20/2020 text/html Generic HPI TemplateReported bypatient.Notes:Here for a physical, feels well. Seeing dentist and ophtho regularly. Jorge Luis Lane MD [address], [address], [facility] 05/20/2020 15:07:25 09/25/2021 text/html Generic HPI TemplateReported bypatient.Notes:Here for a physical, feels well. Seeing dentist and ophtho regularly. Jorge Luis Lane MD [address], [address], [facility] 09/25/2021 11:49:59 10/22/2022 text/html Generic HPI TemplateReported bypatient.Notes:Here for a physical, feels well. Seeing dentist and ophtho regularly. Jorge Luis Lane MD [address] [address], [place], [address], [facility] 10/22/2022 13:45:08 07/20/2023 text/html Pt had one episo de of blood in his stool on 07/19/23 pt states been having headaches since last wednesday and blood in his stool he does states that last stool had no blood here c mother - concerned pt infreq gets yoon - took prn tylenol - resolved, no problems past few daysno pur nasal dc, no h/o migraines, + stress occasionally (mild) no change in bowel habits, denies straining, constipation, abd pain, diarrheano FH IBD or CRC Hai Moreno PA-C [address] [address], [place], [address], [facility] 07/20/2023 15:46:39 12/28/2023 text/html Generic HPI TemplateReported bypatient.Notes:Here for a physical, feels well. Seeing dentist but overdue for ophtho exam. Jorge Luis Lane MD [address] [address], [place], [address], [facility] 12/28/2023 17:13:05
[2024-04-20] MEDS: Lactated Ringers 1,000 ML 100 ML IVCONT (09:41)
[2024-04-20 09:49] VITALS: BP 134/73; PULSE 68; RESP 18; TEMP 36.8; O2SAT 100
--- NOTE | 2024-04-20 10:19 | P.HPSUR_ITS ---
Pre-Procedural Eval Section A - 24 Hr Update-Section A only Date of Service: 04/20/24 Section B - Complete if H&P > 30 days Chief Complaint: Hemorrhage of anus and rectum Relevant Family History (Specify if Yes): No Relevant Social History: None Present Medications: see Short Stay Collaborative assessment Medical History: Significant History (obesity) History of Previous Operations: No relevant previous surgery Allergies: Allergies Allergy/AdvReac Type Severity Reaction Status Date / Time No Known Drug Allergies Allergy Unknown none Verified 04/20/24 09:34 Review of Systems Sugical H&P ROS: Negative: Constitution, Cardiovascular, Respiratory, Neurologic al, Psychiatric, Hem-Onc, Allergic/Immunologic, Gastrointestinal, Genitourinary, Musculoskeletal, Integumentary, Endocrine and Eyes/Ears/Nose/Throat Exam Surgical H&P Exam: Normal: HEENT, Normal: Heart, Normal: Lungs, Normal: Extremities, Normal: Abdomen, Normal: Skin and Normal: Neurological Plan Diagnosis/Plan: Unchanged I have reviewed the history and physical and performed a pertinent physical examination on my patient. No changes have occurred unless specified. Time Spent With Patient Time: Total time managing care of this patient today ____ minutes.
--- NOTE | 2024-04-20 10:51 | P.OPN-COLO_ITS ---
Colonoscopy Operative Note Operative Note Date of Service: 04/20/24 Narrative: Operative Information Procedure Description: Colonoscopy Indication: rectal bleeding Anesthesia: MAC COLONOSCOPY Instrument: Olympus variable stiffness pediatric scope 190L Colonoscopy Monitoring: Vital signs and clinical assessment, continuous EKG monitoring, Pulse oximetry, Carbon Dioxide monitoring and blood pressure monitoring were done throughout the procedure. Colon withdrawal time was 7 minutes. Procedure: The patient was placed in the left lateral decubitis position and pre-procedure medications were administered. After a digital rectal examination of the ano-rectum, the video colonoscope was inserted into the rectum and advanced through the colon to the cecum/TI. The colonoscope was slowly withdrawn in a retrograde panoramic fashion and the colon mucosa was carefully examined including a retroflexed view of the rectum. Findings and interventions are described below. Procedure Difficulty: easy Findings: Terminal Ileum-normal Cecum:normal Right sided retrofelxion- normal Ascending Colon: normal Transverse Colon -normal Descending Colon:normal Sigmoid Colon: normal Rectum: Retroflexion with small internal hemorrhoids seen, grade I Anorectum - normal Intervention: none Colon preparation: [place] Bowel Preparation Scale Right colon; 2 Transverse colon: 2 Left colon; 2 (0 = Unprepared colon segment with mucosa not seen due to solid stool that cannot be cleared. 1 = Portion of mucosa of the colon segment seen, but other areas of the colon segment not well seen due to staining, residual stool and/or opaque liquid. 2 = Minor amount of residual staining, small fragments of stool and/or opaque liquid, but mucosa of colon segment seen well. 3 = Entire mucosa of colon segment seen well with no residual staining, small fragments of stool or opaque liquid) Impression and Post Procedure Diagnosis: internal hemorrhoids- appears to be the cause of rectal bleeding Plan: High fiber diet leaflet Avoid straining at stool, epsom salts and sitz bath, anusol supps or cream Repeat Colonoscopy in aged 45 years or earlier if clinically indicated Above findings were reviewed with the patient and relevant handouts were provided if indicated.
[2024-04-20 10:57] VITALS: BP 95/47; PULSE 86; RESP 17; TEMP 36.1; O2SAT 96
[2024-04-20 11:12] VITALS: BP 99/60; PULSE 70; RESP 20; O2SAT 98
[2024-04-20 11:27] VITALS: BP 116/75; PULSE 71; RESP 20; TEMP 36.5; O2SAT 100
== END 2024-04-20 11:55 | disposition home or self-care (01) ==
PROVIDERS: PCP Pediatrics; Visit Provider Internal Medicine Gastroenterology
PROC: 0DJD8ZZ Inspection of Lower Intestinal Tract, Via Natural or Artificial Opening Endoscopic (ICD-10-PCS; CPT 45378; principal; 2024-04-20 10:50)
DX: K64.0 First degree hemorrhoids (principal); K62.5 Hemorrhage of anus and rectum
CPT/HCPCS: 45378; J2003; J2250; J2704

== ENCOUNTER → 2024-04-20 08:12 | Outpatient (BNV) | payer MEDICAID, SELFPAY | PROVIDERS: PCP Pediatrics; Visit Provider Internal Medicine Gastroenterology | DX: K62.5 Hemorrhage of anus and rectum (principal); K64.0 First degree hemorrhoids | CPT/HCPCS: 45378 ==

== ENCOUNTER 2024-08-18 11:50 | Outpatient (AMB) | payer MEDICAID, SELFPAY ==
--- NOTE | 2024-08-18 11:52 | A.OFFVIS_ITS ---
Vital Signs 08/18/24 11:56 Height 5 ft 8 in Weight 188 lb BMI 28.6 BP 112/65 Blood Pressure Location Lt brachial Position Sitting Pulse 59 Pulse Oximetry (%) 97 Oxygen Delivery Method Room Air Intake Visit Reasons: s/p colonoscopy Intake Note: Patient follow up for Colonoscopy results. Patient denies any GI issues for today. 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 He has not specific bowel problems and no abd pain associated with this episode. No rectal pain. No upper stomach problems. He is naive to anesthesia and sedation. He denies any cardiac or respiratory problems. NO ID problems. His mother has had a resection for TICS no known crc or polyps. Orders: Orders Colonoscopy - GI Use Only Today Z01.818 - Encounter for other preprocedural examination Complete Blood Count Auto Diff Today Z01.818 - Encounter for other preprocedural examination Comprehensive Met. Panel Today Z01.818 - Encounter for other preprocedural examination Medications: New peg 3350-electrolytes 236-22.74-6.74 -5.86 gram (Golytely) until fecal effluent is clear; do not exceed a total volume of 2,000 mL 240 mL PO Q10M 4,000 mL 0RF 1 day Z12.11 - Encounter for screening for malignant neoplasm of colon bisacodyl (Dulcolax (bisacodyl)) 10 mg (2 x 5 mg) PO BEDTIME 4 tabs 0RF 2 days LABS: Laboratory Tests 09/16/23 15:52 WBC 6.5 Hgb 14.3 Hct 44.3 Plt Count 161 Estimated GFR > 60 Total Bilirubin 1.3 H AST 26 ALT 24 Alkaline Phosphatase 60 COLONOSCOPY 04/20/24 Findings: Terminal Ileum-normal Cecum:normal Right sided retrofelxion- normal Ascending Colon: normal Transverse Colon -normal Descending Colon:normal Sigmoid Colon: normal Rectum: Retroflexion with small internal hemorrhoids seen, grade I Anorectum - normal Intervention: none Impression and Post Procedure Diagnosis: internal hemorrhoids- appears to be the cause of rectal bleeding Plan: High fiber diet leaflet Avoid straining at stool, epsom salts and sitz bath, anusol supps or cream Repeat Colonoscopy in aged 45 years or earlier if clinically indicated BIOPSY NONE TODAY'S VISIT He is here today with his mother who is supportive. Agrees to repeat scope at age 46. The procedure was well tolerated. The results were explained and the patient is agreeable to the follow-up interval as stated. The bowel pattern has returned to normal. Education was provided to tell any 1st degree relatives about their findings to be sure that they are screened by age 45. Educated that they will be put on a recall list when it is time for their repeat scope but should they move out of state or away from the hospital they will need to remember along with their primary to repeat the procedure in a timely fashion to avoid any adverse complications. Educated regarding OTC prep H cream and supps and to control any ongoing CIC or diarrhea. [facility] Medical History (Updated 08/18/24 @ 15:09 by JULY Jean-Baptiste) Rectal bleeding Constipation Obesity Surgical History (Updated 08/18/24 @ 11:53 by Tg Walters) Hx of colonoscopy No pertinent past surgical history Family History Maternal Grandmother Bone cancer Social History Are you a primary clinical care coordinator to a significant other at home: No Do you presently have visiting nurse or other home services: No Alcohol intake: never Patient Tobacco Use Status: Never used Tobacco Physical Exam Vital Signs: Last Vital Signs Pulse 59 08/18/24 11:56 BP 112/65 08/18/24 11:56 Pulse Ox 97 08/18/24 11:56 Oxygen Delivery Method Room Air 08/18/24 11:56 BMI result Body Mass Index 28.6 Assessment & Plan Assessment & Plan (1) Bleeding internal hemorrhoids: Code(s): K64.8 - Other hemorrhoids Category: Medical Plan He is here today with his mother who is supportive. Agrees to repeat scope at age 46. The procedure was well tolerated. The results were explained and the patient is agreeable to the follow-up interval as stated. The bowel pattern has returned to normal. Education was provided to tell any 1st degree relatives about their findings to be sure that they are screened by age 45. Educated that they will be put on a recall list when it is time for their repeat scope but should they move out of state or away from the hospital they will need to remember along with their primary to repeat the procedure in a timely fashion to avoid any adverse complications. Educated regarding OTC prep H cream and supps and to control any ongoing CIC or diarrhea. PRN Coding Level of Care Code Est Pt Level 3 (68439) Diagnoses Bleeding internal hemorrhoids K64.8
[2024-08-18 11:56] VITALS: BP 112/65; PULSE 59; O2SAT 97; BMI 28.6
--- OUTSIDE RECORDS SUMMARY | 2024-08-18 12:56 | XMS_ITS | Data Portability ---
Author Organization [facility], Main Office Address [address] [facility] [address] [place] [address] Care Team Providers Care Process Technician Name Role Phone JORGE LUIS LANE Primary Care Provider [phone] [facility] Robotics Technologist Assessment No assessment recorded. Plan of Treatment Reminders Order Date Submit Date Provider Last Modified By Organization Details Last Modified Time Details Appointments None recorde d. Lab CBC 2023 024 LIZETH [facility] (Centralized Electronic Ordering - All Locations), Patient Can Go To The Location Of Their Choice, [id number] 4 22:05:47 TSH, serum or plasma 2020 021 LIZETH [facility], [address], [address] [address], [place], [address], 1 20:21:03 CMP, serum or plasma 2020 021 LIZETH [facility], [address], [address], [place], [address], 1 20:16:04 lipid panel, serum 2020 021 LIZETH [facility], [address], [address] [address], [place], [address], 1 20:16:05 Referral nutriti onist/d delonte de leon referra l 2023 024 Not available 11/05/202 4 15:14:44 gastroe nterolo gist referra l 2023 024 [email or web address] [facility], [address], [place], [address], 4 13:06:43 nutriti onist/d ietitia n referra l 2022 023 Not available 3 14:20:43 nutriti onist/d ietitia n referra l 2021 022 [email or web address] Not available 13:08:08 nutriti onist/d ietitia n referra l [...] Enrique on Details Last Modified Time 05/20/2020 [id number] thyroid nodules: care instructions awmilyowski Not available 05/20/2020 15:03:21 starting a weigh t loss plan: care instructions awychowski Not available 05/20/2020 15:03:21 09/25/2021 [id number] psychiatric collaborative care management* - for assessment of pt with blunted affect, rule out mood disorder vs ASD [email or web address] Not available 10/03/2021 11:24:23 When You Want to Lose Weight: Care Instructions awychowski Not available 09/25/2021 11:49:45 Nutrition Referr al and Weight Management Follow-up Information awychowski Not available 09/25/2021 11:49:45 10/22/2022 [id number] neuropsychologic al testing* - for neuropsych testing. jaxon Not available 12/11/2022 06:45:59 learning about stress chris Not dee dee ilable 10/22/2022 13:33:22 Mental Health Information awychowski Not available 10/22/2022 13:33:22 When You Want to Lose Weight: Care Instructions chris Not available 10/22/2022 13:33:22 Nutrition Referr al and Weight Management Follow-up Information chris Not available 10/22/2022 13:33:22 07/20/2023 [id number] headache: care instructions pmadden Not available 07/20/2023 11:56:38 tension headache : care instructions pmadden Not available 07/20/2023 11:56:39 rectal bleeding: care instructions pmadden Not available 07/20/2023 15:45:41 Follow up if no improvement or if symptoms worsen. pmadden Not available 07/20/2023 15:46:12 12/28/2023 [id number] starting a weigh t loss plan: care instructions chris Not available 12/28/2023 14:42:47 Reason for Referral Field Examiner/dietitian Refer ral for Body mass index 30+ - obesity Referring Physician: Jorge Luis Lane [facility], Encounter Date: 05/20/2020 Field Examiner/dietitian Refer ral for Body mass index 25-29 - overweight Referring Physician: Jorge Luis Lane [facility], Encounter Date: 09/25/2021 Field Examiner/dietitian Refer ral for Body mass index 25-29 - overweight Referring Physician: Jorge Luis Lane [facility], Encounter Date: 10/22/2022 Robotics Technologist Referral for Hematochezia Referring Physician: Hai Moreno, Internal Medicine, Encounter Date: 07/20/2023 Field Examiner/dietitian Refer ral for Body mass index 30+ - obesity Referring Physician: Jorge Luis Lane [facility], Encounter Date: 12/28/2023 Results Created Date Observation Date Name Description Value Unit Range Abnormal Flag Note LastModifiedBy Organization Detail LastModifiedTime 05/21/19 21 05/20/2020 CMP, serum or plasm a glucose 90 mg/dL (70-99 ) Not Available [facility] (Centralized Electronic Ordering - All Locations) Patient Can Go To The Location Of Their Choice, [address] 05/20/2020 20:16:04 05/21/19 21 05/20/2020 CMP, serum [...] 05/20/2020 20:16:05/21/1905/20/2020 CMP, serum or plasm a total protein 7.1 gm/dL (6.2-8 .2) Not Available [facility] (Centralized Electronic Ordering - All Locations) Patient Can Go To The Location Of Their Choice, 05/20/2020 20:16:04 05/21/1905/20/2020 CMP, serum or plasm a Ag ratio 1.7 Not Available [facility] (Centralized Electronic Ordering - All Locations) Patient Can Go To The Location Of Their Choice, 05/20/2020 20:16:04 05/21/1905/20/2020 CMP, serum or plasm a AST 22 [...] Go To The Location Of Their Choice, [address] 05/20/2020 20:16:05 05/21/19 21 05/20/2020 TSH, serum or plasm a TSH 1.22 uIU/m L (0.4-4 .00) Not Available [facility] (Centralized Electronic Ordering - All Locations) Patient Can Go To The Location Of Their Choice, 05/20/2020 20:21:03 07/20/19 24 07/20/2023 CBC, PLATE LET, NO DIFFE RENTI AL WBC 5.4 x10e3 /uL 3.4-10 .8 Not Available [facility] ([facility]) [address] [place], [address], 07/20/2023 22:05:47 07/20/19 24 07/20/2023 CBC, PLATE LET, NO DIFFE RENTI AL RBC 5.66 x10e6 /uL 4.14-5 .80 Not Available [facility] ([facility]) [address] [place], [address], 07/20/2023 22:05:47 07/20/19 24 07/20/2023 CBC, PLATE LET, NO DIFFE RENTI AL hemoglobin 14.1 g/dL 13.0-1 7.7 Not Available [facility] ([facility]) [address] [place], [address], 07/20/2023 22:05:47 07/20/19 24 07/20/2023 CBC, PLATE LET, NO DIFFE RENTI AL hematocrit 46.5 % 37.5-5 1.0 Not Available [facility] ([facility]) [address] [place], [address], 07/20/2023 22:05:47 07/20/19 24 07/20/2023 CBC, PLATE LET, NO DIFFE RENTI AL MCV 82 fL 79-97 Not Available [facility] ([facility]) [address] [place], [address], 07/20/2023 22:05:47 07/20/19 24 07/20/2023 CBC, PLATE LET, NO DIFFE RENTI AL MCH 24.9 pg 26.6-3 3.0 below low normal Not Available [facility] ([facility]) [address] [facility], [place], [address], 07/20/2023 22:05:47 07/20/19 24 07/20/2023 CBC, PLATE LET, NO DIFFE RENTI AL MCHC 30.3 g/dL 31.5-3 5.7 below low normal Not Available [facility] ([facility]) [address] [facility], [place], [address], 07/20/2023 22:05:47 07/20/19 24 07/20/2023 CBC, PLATE LET, NO DIFFE RENTI AL RDW 13.1 % 11.6-1 5.4 Not Available [facility] ([facility]) [address] [facility], [place], [address], 07/20/2023 22:05:47 07/20/19 24 07/20/2023 CBC, PLATE LET, NO DIFFE RENTI AL platelets 154 x10e3 /uL 150-45 0 Not Available [facility] ([facility]) [address] [facility], [place], [address], 07/20/2023 22:05:47 07/20/19 24 07/20/2023 CBC, PLATE LET, NO DIFFE RENTI AL NRBC COMBATANT DIVER OFFICER Not Available [facility] ([facility]) [address] [place], [address], 07/20/2023 22:05:47 Result Notes None recorded. Problems Name Problem SNOMED Code Status Onset Date Resolution Date Notes Provider Name and Address Organization Details Recorded Time Contact dermatit is 76275045 Completed 201309/05/2013 RECORDED 04/12/19 14 4:49PM BY JORGE LUIS Fairchild MD, ANNOTATI ON/ADDEN DUM Not Available [facility] 4 13:32:35 Disorder of hair AND/OR hair follicle Completed 201311/22/2014 IMPRESSI ON: WILL SEE IF TOPICAL ABX HELPS. SYMPTOMS CURRENTL Y MILD.; RECORDED 04/12/19 14 4:49PM BY JORGE LUIS Fairchild MD, OFFICE VISIT Jorge Luis Lane MD [address] [address], [place], [address] , [facility] 5 10:52:20 Active or passive immuniza tion Completed 201309/05/2013 RECORDED 04/12/19 14 3:38PM BY JORGE LUIS Fairchild MD, OFFICE VISIT Not Available [facility] 4 13:32:35 Obesity 190391663 Completed 201308/04/[address] MD [address] [address], [place], [address] , [facility] 8 12:07:32 Overwe[place] ht 238057834 Completed 201309/05/2013 RECORDED 04/12/19 14 3:43PM BY MAYLIN MCCARTY MA, ANNOTATI ON/ADDEN DUM Not Available [facility] 4 13:32:35 Well child 902456122 Completed 201311/22/2014 IMPRESSI ON: WILL UPDATE IMMUNIZA TION STATUS. REGULAR DENTAL CARE AND SEATBELT USE ADVISED. DISTRACT ED DRIVING DISCUSSE D. MONTHLY AMALIA ADVISED. ; RECORDED 04/12/19 14 4:48PM BY JORGE LUIS Fairchild MD, OFFICE VISIT Jorge Luis Lane MD [address] [address], [place], [address] , [facility] 5 10:52:20 Well child 882137074 Completed 201309/05/2013 IMPRESSI ON: GROWING AND DEVELOPI NG WELL. AGE APPROPRI ATE ANTICIPA TORY GUIDANCE PROVIDED . REGULAR DENTAL CARE AND APPROPRI ATE CAR SAFETY ADVISED. HPV AND INFLUENZ A VACCINAT IONS OFFERED BUT DECLINED WITH MILENA PANDYA NCES UNDERSTO OD.; RECORDED 04/12/19 14 1:22PM BY ROMA JACOME MA, ANNOTATI ON/ADDEN DUM Not Available [facility] 4 13:32:35 Contact dermatit is 94590913 Completed 201310/02/2013 RECORDED 04/12/19 14 4:49PM BY JORGE LUIS Fairchild MD, ANNOTATI ON/ADDEN DUM Not Available [facility] 4 05:14:39 Active or passive immuniza tion Completed 201310/02/2013 RECORDED 04/12/19 14 3:38PM BY JORGE LUIS Fairchild MD, OFFICE VISIT Not Available [facility] 4 05:14:39 [place] 993397783 Completed 201310/02/2013 RECORDED 04/12/19 14 3:43PM BY MAYLIN MCCARTY MA, ANNOTATI ON/ADDEN DUM Not Available [facility] 4 05:14:39 Body mass index 25-29 - overweig 753753121 Completed 08/04/[address] MD [address] [address], [place], [address] , [facility] 4 17:12:01 Body mass index 25-29 - overweig ht 833557545 Completed 201705/20/[address] MD [address] [address], [place], [address] , [facility] 4 17:12:01 Suspecte d COVID-19 059607136 Completed 02/04/2021 Removal Reason: Problem added by user [email or web address] from the COVID-19 watch flag Sherlyn marcelo, [facility] 1 13:45:30 Body mass index 25-29 - overweig ht 563000083 Completed 202112/28/[address] MD [address] [facility] [address], [place], [address] , [facility] 4 17:12:01 Blunted affect 7893778 Active [address] MD [address] [facility] [address], [place], [address] , [facility] 3 13:31:01 Body mass index 30+ - obesity 581678054 Active [address] MD [address] [facility] [address], [place], [address] , [facility] 4 17:11:11 Problem Notes None recorded. Medical Equipment None Reported. Allergies Allergen ID Allergen Name Allergen Category Reaction Reaction Severity Criticality Documentation Date Start Date Code Code System Note Provider Name and Address Organization Details Recorded Time 4080 No known allergy (situatio n) Not available Not available Not available Not available 09/05/20132011 84262 6003 SNOMED Roma Jacome MA null, [facility] 2 11:01:54 Medications Name Sig Start Date [...] Updated DateTime 1 171.45 cm 32.1 kg/m2 67410.2 1 g 98 % 98 % 72 /min 98.06 [degF] 122 mm[Hg] 72 mm[Hg] Roma Jacome [facility] 1 14:31:38 Date Recorded Body height Body mass index (BMI) Body weight Heart rate Oxygen saturation Oxygen saturation in Arterial blood by Pulse oximetry Body temperature Systolic blood pressure Diastolic blood pressure Provider Name and Address Organization Details Last Updated DateTime 4 171.45 cm 30.7 kg/m2 11636.8 8 g 81 /min 97 % 97 % 98.7 [degF] 100 mm[Hg] 64 mm[Hg] Donovan sullivan MA [facility] 4 11:05:18 Date Recorded Body height Body mass index (BMI) Body weight Heart rate Oxygen saturation Oxygen saturation in Arterial blood by Pulse oximetry Body temperature Systolic blood pressure Diastolic blood pressure Provider Name and Address Organization Details Last Updated DateTime 2 171.45 cm 28.9 kg/m2 64990.7 7 g 75 /min 98 % 98 % 98.24 [degF] 110 mm[Hg] 63 mm[Hg] [facility] 2 11:13:24 Date Recorded Body height Body mass index (BMI) Body weight Heart rate Oxygen saturation Oxygen saturation in Arterial blood by Pulse oximetry Body temperature Systolic blood pressure Diastolic blood pressure Provider Name and Address Organization Details Last Updated DateTime 3 171.45 cm 28.3 kg/m2 33603.8 g 61 /min 98 % 98 % 98.5 [degF] 105 mm[Hg] 69 mm[Hg] [facility] 3 13:07:24 Date Recorded Body height Body mass index (BMI) Body weight Heart rate Oxygen saturation Oxygen saturation in Arterial blood by Pulse oximetry Body temperature Systolic blood pressure Diastolic blood pressure Provider Name and Address Organization Details Last Updated DateTime 4 171.45 cm 31.9 kg/m2 08805.8 3 g 83 /min 99 % 99 % 98 [degF] 111 mm[Hg] 70 mm[Hg] Angela Narvaezone, [facility] 4 13:59:33 Social History Question Answer Notes LastModified by Organizat ion Details LastModified Time Tobacco Smoking Status Never Smoker Not Available [facility] 12/26/2019 03:36:38 Do You Have An Advance Directive? Yes HCP/ Mom-Frannie [id number] Information not available 12/26/2019 Is Blood Transfusion Acceptable In An Emergency? Yes [id number] Information not available 12/26/2019 What Is Your Level Of Caffeine Consumption? Occasional Tea Information not available 10/22/2022 How Much Tobacco Do You Chew? None [id number] Information not available 12/26/2019 What Type Of Diet Are You Following? REGULAR [id number] Information not available 12/26/2019 Which Illicit Or Recreational Drugs Have You Used? None [id number] Information not available 12/26/2019 Live Alone Or With Others? With Others Mom, Sister (Rosario), And Nenazanin joseph Information not available 11/22/2014 Do You Take Precautions To Prevent Distracted Driving? Yes Information not available 08/04/2017 How Often Do You Need To Have Someone Help You When You Read Instructions, Pamphlets, Or Other Written Material From Your Doctor Or Pharmacy? Sometimes [employer] Information not available 07/23/2016 Have You Served In The ? No [employer] Information not available 07/23/2016 Have You Or [...] 05/20/2020 Have You Recently Traveled To A [place] [address] High Risk Area Or Gathering In The Last 10 Days? No Information not available 05/20/2020 What Was The Date Of Your Most Recent Tobacco Screening? 12/28/2023 Information not available 12/28/2023 How Many Children Do You Have? 0 [id number] Information not available 12/26/2019 Seat Belts Used Routinely Yes Information not available 11/22/2014 Are You Sexually Active? No [id number] Information not available 12/26/2019 Smoke Alarm In Home Yes Information not available 11/22/2014 At What Age Did You Start Smoking Tobacco? 1 [id number] Information not available 12/26/2019 Are You Passively Exposed To Smoke? No Information not available 11/22/2014 How Much Tobacco Do You Smoke? No [id number] Information not available 12/26/2019 Do You Use Sunscreen Routinely? No [id number] Information not available 12/26/2019 How Many Years Have You Smoked Tobacco? 0 [id number] Information not available 12/26/2019 Sex: Unknown Functional Status Question Answer Note LastModified by Organizat ion Details LastModified Time Do you use any illicit or recreational drugs? No Information not available 09/25/2021 Do you or have you ever used any other forms of tobacco or nicotine? No Information not available 09/25/2021 What is your level of alcohol consumption? None [id number] Information not available 12/26/2019 Do you or have you ever used smokeless tobacco? Never used smokeless tobacco [id number] Information not available 12/26/2019 Are you currently employed? No [id number] Information not available 12/26/2019 Are you able to walk? YESWOREST Information not available 09/25/2021 Are you able to care for yourself? Yes [id number] Information not available 12/26/2019 What is your occupation? unemployed Information not available 05/20/2020 Do you or have you ever used e-cigarettes or vape? Never used electronic cigarettes [id number] Information not available 12/26/2019 What is your exercise level? Occasional Gym Information not available 10/22/2022 Mental Status None recorded. Family History Relationship Description Onset Age of this Age Resolved Age Notes LastModified by Organization Details LastModified Time Mother Hypertensive disorder cheriowski Not available 11/22 10:54:44 Father Well adult awychowski Not avail able 11/22/2014 10:54:44 Sister Well adult awychowski Not avail able 08/04/2017 12:09:09 Medical History No medical history recorded. Immunizations Vaccine Type Date Status Note Provider Nam e and Address Organization Details Recorded Time COVID-19, mRNA, LNP-S, PF, 30 mcg/0.3 mL dose [facility] 13:03:22 COVID-19, mRNA, LNP-S, PF, 30 mcg/0.3 mL dose 1 [facility] 13:03:22 COVID-19, mRNA, LNP-S, PF, 30 mcg/0.3 mL dose, jeremiah-sucrose 2 completed Angela Morris MA [facility] 10/22/2022 13:03:22 Tdap 8 completed Not Available [facility] 03/11/2019 02:21:48 HPV9 8 completed Not Available [facility] 03/11/2019 02:22:00 HPV9 8 completed Not Available [facility] 03/11/2019 02:22:00 meningococcal MPSV4 8 completed Not Available [facility] 09/05/2013 13:45:34 Tdap 8 completed Not Available [facility] 09/05/2013 13:45:34 DTaP 7 completed Not Available [facility] 09/05/2013 13:45:34 DTaP 7 completed Not Available [facility] 09/05/2013 13:45:34 DTaP 7 completed Not Available [facility] 13:45:34 DTaP 8 completed Not Available [facility] 13:45:34 IPV 7 completed [facility] Available [facility] 13:45:34 IPV 7 completed Not Available [facility] 13:45:34 IPV 7 completed [facility] 13:45:34 IPV 8 completed Not Available [facility] 09/05/2013 13:45:34 Hib (HbOC) 9 completed Not Available [facility] 09/05/2013 13:45:35 MMR 8 completed Not Available [facility] 09/05/2013 13:45:35 MMR 0 completed Not Available [facility] 09/05/2013 13:45:35 varicella 0 completed Not Available [facility] 09/05/2013 13:45:35 varicella 9 completed Not Available [facility] 09/05/2013 13:45:35 Hep B, adult 9 completed Not Available [facility] 09/05/2013 13:45:35 Hep B, adult 0 completed Not Available [facility] 09/05/2013 13:45:35 Hep B, adult 1 completed Not Available [facility] 09/05/2013 13:45:35 Meningococcal MCV4O 4 completed Not Available [facility] 09/05/2013 13:45:35 HPV9 9 completed Not Available [facility] 03/11/2019 02:22:00 Influenza, split virus, trivalent, PF [address] MD [address] [address], [place], [address], [facility] 12/28/2023 17:10:48 Past Encounters Encounter ID Performer Location Encounter Start Date Encounter Closed Date Diagnosis/Indication Diagnosis SNOMED-CT Code Diagnosis ICD10 Code Diagnosis Note [id number] autoEComm erce [address] [facility] [place] [address] 12/31/2011 00:00:00 [id number] [facility]Comm erce [address] [facility] [address] [place] [address] 04/12/2013 00:00:[id number] MD Main Office [address] [address] [place] [address] 11/22/2014 09:56:49 11/22/2014 11:09:18 Adult health examination 435381821 Z00.00 Pt declines flu and Zostavax, understand ing potential consequenc es. Regular dental and ophtho care advised as well as seatbelt and sunscreen use. Body mass index 25-29 - overweight 176001398 E66.3 [id number] Hai Moreno PA-C Main Office [address] [address] [place] [address] 07/23/2016 15:30:16 07/23/2016 16:17:12 Adult health examination 911887222 Z00.00 Body mass index 25-29 - overweight 566503950 E66.[id number] MD Main Office [address] [address] [place] [address] 08/04/2017 11:05:04 08/04/2017 12:32:54 Adult health examination 583964559 Z00.00 Immunizati on status updated, flu advised in the Fall. Screening utd. Regular dental and ophtho care advised as well as seat belt, helmet and sunscreen use. Monthly AMALIA also recommende d. Administra tion of viral vaccine 81597843 Z23 Body mass index 25-29 - overweight 264898955 E66.[id number] MD Main Office [address] [address] [place] [address] 12/03/2017 10:01:22 12/03/2017 10:11:36 Administration of viral vaccine 36159296 Z23 [id number] Dmitry Ma MD Main Office [address] [address] [place] [address] 04/15/2018 14:58:04 04/15/2018 15:27:58 Administration of viral vaccine 71810385 Z23 [id number] Jorge Luis Lane MD Main Office [address] [address] [place] [address] 11/14/2018 13:51:31 11/14/2018 14:31:46 Adult health examination 818738933 Z00.00 Immunizati on status utd flu advised when available. Will screen based on risk factors. Regular dental and ophtho care advised as well as seat belt, helmet and sunscreen use. Monthly AMALIA also recommende d. Advance directives updated/in place. Body mass index 25-29 - overweight 150624217 E66.3 Z68.27 [id number] Long Jj MD [facility] [address] [address] [place] [address] 03/12/2020 14:31:38 03/14/2020 12:58:40 Acute pharyngitis 906485928 J02.9 I advised him to get a COVID test and to quarantine until the results a back. He will also take ibuprofen prn. [id number] Jorge Luis Lane MD Main Office [address] [address] [place] [address] 05/20/2020 14:14:27 05/20/2020 15:06:33 Adult health examination 955624688 Z00.00 Immunizati on status utd flu advised when available. Will screen based on risk factors. Regular dental and ophtho care advised as well as seat belt, helmet and sunscreen use. Monthly AMALIA also recommende d. Advance directives updated/in place. Body mass index 30+ - obesity 944354803 E66.9 Z68.32 Thyroid nodule 712205135 E04.1 Assess for goiter and possible thyroid dysfunctio n. If Labs and u/s normal, no further imaging needed. Screening for cardiovascular system disease 277711793 Z13.[id number] MD Main Office [address] [address] [place] [address] 09/25/2021 10:58:16 09/25/2021 11:45:35 Adult health examination 615896567 Z00.00 Immunizati on status utd flu advised when available. Will screen based on risk factors. Regular dental and ophtho care advised as well as seat belt, helmet and sunscreen use. Monthly AMALIA also recommende d. Advance directives updated/in place. Body mass index 25-29 - overweight 320304758 E66.3 Z68.28 Blunted affect 1505326 R 45.89 Mom has been asking him to pursue eval to assess for possible mood or disorders. Pt will call to schedule if desired and let me know if having any issues. [id number] Jorge Luis Lane MD Main Office [address] [facility] [address] [place] [address] 10/22/2022 12:47:24 10/22/2022 13:45:06 Adult health examination 248097956 Z00.00 COVID booster and flu advised when available. Screening utd based on risk factors. Regular dental and ophtho care advised as well as seat belt, helmet and sunscreen use. Monthly AMALIA also recommende d. Advance directives updated/in place. Body mass index 25-29 - overweight 379838657 E66.3 Z68.28 Blunted affect 2979168 R 45.89 Seen by psych since last visit. Differenti al remains broad, possible ASD vs learning d/o vs schizophre moriah. Pt advised to schedule neuropsych testing and to schedule eval with [facility] for therapy and psychiatri st. [id number] Luis [address] MD Main Office [address] [place] [address] 07/20/2023 10:53:15 07/20/2023 11:59:50 Hematochezia [id number] K92.1 resolved - but will check cbc to r/o anemia, and get gi eval at mother's request Headache [id number] R51.9 resolved - ? if had tension type yoon - rec prn hep, moist heat [id number] Jorge Luis Lane MD Main Office [address] [facility] [address] [facility] [place] [address] 12/28/2023 13:51:44 12/28/2023 14:51:05 Adult health examination [id number] Z00.00 COVID booster advised via local pharmacy. Screening utd based on risk factors. Regular dental and ophtho care advised as well as seat belt, helmet and sunscreen use. Monthly AMALIA also recommende d. Advance directives updated/in place. Needs infl uenza immunization [id number] Z23 19 YEARS AND OLDER ONLY Blunted affect 4411610 R 45.89 Seen by psych since last visit. Differenti al remains broad, possible ASD vs learning d/o vs schizophre moriah. Body mass index 30+ - obesity [id number] E66.9 Z68.31 Health Concerns Section Related Observation LastModified by Organization Detai ls LastModified Time None Recorded Concern Status LastModified by Organization Details LastModified Time None Recorded Advance Directives Directive Y: HCP/ Mom-Frannie Payers Insurance Date Sequence Insurance Name Policy Number Policy Haddad Covered Member ID Haddad Member ID Guarantor Name 12/28/2023 1 [place] [facility] Anirudh Carreon [id number] Frannie Carreon 10/22/2022 1 [facility] [id number] Frannie Carreon [id number] Frannie Carreon 04/12/2018 1 [facility] [place] [place] [id number] Frannie Carreon [id number] Frannie Carreon Notes Date Note Type Note Provider Name and Address Organization Details Recorded Time 05/20/2020 text/html Generic HPI TemplateReported bypatient.Notes:Here for a physical, feels well. Seeing dentist and ophtho regularly. Jorge Luis Lane MD [address], [address], [facility] 05/20/2020 15:07:25 09/25/2021 text/html Generic HPI TemplateReported bypatient.Notes:Here for a physical, feels well. Seeing dentist and ophtho regularly. Jorge Luis Lane MD [address], [address], [facility] 09/25/2021 11:49:59 10/22/2022 text/html Generic HPI TemplateReported bypatient.Notes:Here for a physical, feels well. Seeing dentist and ophtho regularly. Jorge Luis Lane MD [address], [address], [facility] 10/22/2022 13:45:08 07/20/2023 text/html Pt had one [...] IBD or CRC Hai Moreno PA-C [address] [address], [place], [address], [facility] 07/20/2023 15:46:39 12/28/2023 text/html Generic HPI TemplateReported bypatient.Notes:Here for a physical, feels well. Seeing dentist but overdue for ophtho exam. Jorge Luis Lane MD [address] [facility] [address], [place], [address], [facility] 12/28/2023 17:13:05
== END 2024-08-18 12:25 | disposition home or self-care (01) ==
LOC: HO.HGI 11:51
PROVIDERS: PCP Pediatrics; Visit Provider Nurse Practitioner
DX: K64.8 Other hemorrhoids (principal)
CPT/HCPCS: 99213

== ENCOUNTER → 2024-08-18 11:50 | Outpatient (BNVA) | payer MEDICAID, SELFPAY | PROVIDERS: PCP Pediatrics; Visit Provider Nurse Practitioner | DX: Z71.2 Person consulting for explanation of examination or test findings (principal); K64.8 Other hemorrhoids | CPT/HCPCS: 99212 ==